=== PATIENT | female | born 1975 | race Caucasian/White ===

== ENCOUNTER 2019-02-12 13:19 | Outpatient (CLI) | payer OTHER ==
--- NOTE | 2019-02-12 14:37 | ULT ---
THYROID ULTRASOUND: HISTORY: Thyroid nodule. FINDINGS: Real-time imaging of the right and left lobes of the thyroid were performed. The right lobe measures 2.8 x 3 x 4.8 cm and the left lobe 1.6 x 1.6 x 4.5 cm. There is a large complex cyst measuring 2.5 x 3.6 cm involving the right lobe. There is intraluminal debris or possibly mass, although no creative intern al flow is demonstrated associated with this and I would favor that this represents blood products fr om the appearance. IMPRESSION: Large complex right thyroid cyst. POS: OFF
== END 2019-02-12 13:20 | disposition home or self-care (01) ==
LOC: SCSULT 13:19
PROVIDERS: ATTEND Family Medicine
DX: E04.9 Nontoxic goiter, unspecified (principal); E04.1 Nontoxic single thyroid nodule
CPT/HCPCS: 76536